=== PATIENT | female | born 1980 | race Caucasian/White ===

== ENCOUNTER 2021-04-25 16:21 | Emergency (ER) | payer SELFPAY ==
[2021-04-25] MEDS ORDERED: Ibuprofen 600 MG TAB ONE (17:08)
[2021-04-25 17:12] LABS: Bilirubin Negative (Negative); Blood, Urine Large (Negative); Clarity Slightly Cloudy (Clear); Glucose, Urine (Dipstick) Negative (Negative); Ketone, Urine Negative (Negative); Leukocyte Small (Negative); Nitrite Negative (Negative); Protein, Urine (Dipstick) 100 mg/dL (Neg-Trace); Specific Gravity, Urine 1.023 (1.002-1.036); Urobilinogen 0.2 mg/dL (Less than 2)
[2021-04-25 17:13] LABS: Bacteria/HPF 3+ HPF (None Seen); RBC/HPF Greater than 50 HPF (0-3); Squamous Epithelial 0-3 HPF (0-3); WBC/HPF Greater Than 50 HPF (0-3)
[2021-04-25] MEDS ORDERED: Sulfameth/Trimethoprim DS 800-160mg TAB ONE (17:26)
== END 2021-04-25 17:35 | disposition home or self-care (01) ==
LOC: MADERS 16:21
DX: N39.0 Urinary tract infection, site not specified (principal)
CPT/HCPCS: 81003; 81015; 87077; 87086; 87186; 99283